=== PATIENT | female | born 1980 | race Hispanic/Latino ===

== ENCOUNTER 2021-05-19 03:26 | Emergency (ER) | payer SELFPAY ==
[~2021-05-19] VITALS: Ht 167.6 cm; Wt 87.1 kg
[2021-05-19] MEDS ORDERED: AMOXICILLIN/CLAVULANATE K 875 MG TAB PO STA (03:34)
[2021-05-19] MEDS ORDERED: AMOX TR-K CLV1 EAC2 PO (03:39)
[2021-05-19] MEDS ORDERED: CORTISPORIN-TC10 M1 RIGHT EAR (03:39)
[2021-05-19] MEDS ORDERED: IBUPROFEN600 MG PO (03:40)
[2021-05-19] MEDS ORDERED: KETOROLAC TROMETHAMINE 60 MG/2 ML VIAL IM ONE (03:45)
[2021-05-19] MEDS ORDERED: KETOROLAC TROMETHAMINE 60 MG/2 ML VIAL ONE (03:52)
[2021-05-19] MEDS ORDERED: AMOXICILLIN/CLAVULANATE K 875 MG TAB ONE (03:52)
== END 2021-05-19 04:20 | disposition home or self-care (01) ==
LOC: EDSEX 03:26 → ER 03:31
DX: H66.91 Otitis media, unspecified, right ear (principal); H60.91 Unspecified otitis externa, right ear
CPT/HCPCS: 99283; J1885